=== PATIENT | female | born 1990 | race Caucasian/White ===

== ENCOUNTER 2023-10-28 14:23 | Emergency (ER) | payer MEDICARE, OTHER ==
[~2023-10-28] VITALS: Ht 162.6 cm; Wt 79.8 kg
[2023-10-28 14:29] VITALS: TEMP 98.5
[2023-10-28 15:07] LABS: BASOPHILS # (AUTO) 0.1 K/uL (0.0-0.2); BASOPHILS % (AUTO) 0.5 % (0.0-2.0); EOSINOPHILS # (AUTO) 0.2 K/uL (0.0-0.7); EOSINOPHILS % (AUTO) 1.5 % (0.0-6.0); HEMATOCRIT 38 % (33-45); HEMOGLOBIN 12.8 g/dL (11.5-14.8); LYMPHOCYTES # (AUTO) 1.4 K/uL (0.8-4.8); LYMPHOCYTES % (AUTO) 14.4 % (20.0-44.0); MEAN CORPUSCULAR HEMOGLOBIN 30 PG (26.0-33.0); MEAN CORPUSCULAR HGB CONC 34 g/dl (31.0-36.0); MEAN CORPUSCULAR VOLUME 89 fL (82-100); MONOCYTES # (AUTO) 0.7 K/uL (0.1-1.30); MONOCYTES % (AUTO) 7.2 % (2.0-12.0); NEUTROPHILS # (AUTO) 7.6 K/uL (1.8-8.9); NEUTROPHILS % (AUTO) 76.4 % (43.0-81.0); PLATELET COUNT (AUTO) 325 K/uL (150-450); RED CELL DISTRIBUTION WIDTH 13.1 % (11.5-15.0); WHITE BLOOD COUNT (AUTO) 9.9 K/uL (4.3-11.0)
[2023-10-28 15:14] LABS: CALCIUM, SERUM 8.7 mg/dL (8.5-10.1); CREATININE 0.7 mg/dL (0.6-1.3); POTASSIUM 4.1 mmol/L (3.5-5.1)
[2023-10-28 15:17] LABS: ALCOHOL, BLOOD < 3 mg/dL (0-10)
[2023-10-28] MEDS: LEVETIRACETAM (500MG) 1,000 MG in IV NS 0.9% 90 ML IV SCH (15:19)
[2023-10-28 15:20] LABS: ALBUMIN 2.8 g/dL (3.4-5.0); BILIRUBIN,DIRECT 0.1 mg/dL (0.0-0.2); BILIRUBIN,TOTAL 0.2 mg/dL (0.2-1.0); TOTAL PROTEIN, SERUM 6.9 g/dL (6.4-8.2)
[2023-10-28 15:21] LABS: PHENYTOIN (DILANTIN) 1.2 ug/ml (10.0-20.0)
[2023-10-28 15:22] LABS: CARBAMAZEPINE (TEGRETOL) 4.5 ug/ml (4-11.9)
[2023-10-28 15:23] LABS: PHENYTOIN (DILANTIN) 1.2 ug/ml (10.0-20.0)
[2023-10-28 15:27] LABS: AMPHETAMINE, URINE NEGATIVE (NEGATIVE); BARBITURATE, URINE NEGATIVE (NEGATIVE); BENZODIAZEPINE, URINE NEGATIVE (NEGATIVE); CANNABINOID, URINE NEGATIVE (NEGATIVE); COCCAINE, URINE NEGATIVE (NEGATIVE); OPIATE, URINE NEGATIVE (NEGATIVE); PHENCYCLIDINE SCREEN,URINE NEGATIVE (NEGATIVE)
[2023-10-28] MEDS ORDERED: PHENYTOIN EXTENDED RELEASE 100 MG CAPSULE PO ONE (15:48)
[2023-10-28] MEDS: PHENYTOIN EXTENDED RELEASE 100 MG CAPSULE PO ONE (15:48)
[2023-10-28] MEDS ORDERED: PHEN100C4 PO (16:47)
[2023-10-28 19:16] VITALS: BP 132/82; O2SAT 96
== END 2023-10-28 19:24 ==
LOC: ER 15:26
DX: G40.909 Epilepsy, unspecified, not intractable, without status epilepticus (principal); M79.676 Pain in unspecified toe(s); F31.9 Bipolar disorder, unspecified; F20.9 Schizophrenia, unspecified; R51.9 Headache, unspecified; E11.9 Type 2 diabetes mellitus without complications; R89.2 Abnormal level of other drugs, medicaments and biological substances in specimens from other organs, systems and tissues; Z88.0 Allergy status to penicillin; Z60.2 Problems related to living alone
CPT/HCPCS: 99285; 96365; 93005; 70450; 85025; 80048; 80185 ×2; 80076; 80156; 36415; 80164; 80320; 80307; J7030; J1953; G0480